=== PATIENT | female | born 1960 | race Caucasian/White ===

== ENCOUNTER 2017-02-09 20:36 | Emergency (ER) | payer OTHER ==
[~2017-02-09] VITALS: Ht 152.4 cm; Wt 67.5 kg
[~2017-02-09 20:36] MED LIST: CIPR500T4 PO; IBUP-727 PO; PHEN-538 PO
[2017-02-09 20:43] VITALS: Ht 152.4 cm; Wt 67.5 kg
--- NOTE | 2017-02-09 23:44 | ERD ---
ER Documentation Chief Complaint Date/Time DATE: 02/09/17 TIME: 23:42 Chief Complaint Fever, cough, colds and ST x2 days, and Flank pain HPI 56-year-old female presents with chief complaint of sore throat and cough x months. Associated symptoms include rhinorrhea and fever.. She denies neck stiffness, ear pain, drooling, difficulty swallowing, shortness of breath. She has taken Advil without relief. She denies recent travel or sick contacts. Currently rates her pain a 6 out of 10 in severity. She also complains of bilateral shoulder and neck pain, aggravated by carrying heavy purses or bags. She denies recent injury. Denies numbness and tingling. ROS All systems reviewed and are negative except as per history of present illness. Medications Home Meds Active Scripts Diclofenac Sodium* (Voltaren* Gel) 1% -100 Gm Gel, 2 GM TOP TID, #1 TUB Prov:Lindy Delarosa PA-C 02/10/17 Fluticasone Propionate (Flonase Allergy Relief) 9.9 Ml [place].susp, 2 SPRAY NASAL DAILY, #1 BOTTLE TO EACH NOSTRIL Prov:Lindy Delarosa PA-C 02/10/17 Cetirizine Hcl* (Zyrtec*) 10 Mg Capsule, 10 MG PO DAILY, #20 TAB.CHEW Prov:Lindy Delarosa PA-C 02/10/17 Phenazopyridine Hcl* (Pyridium*) 200 Mg Tab, 200 MG PO TID Y for DYSURIA, #6 TAB Prov:CAMILO JOLLY DO 03/18/16 Ciprofloxacin Hcl* (Ciprofloxacin Hcl*) 500 Mg Tablet, 500 MG PO BID for 5 Days , TAB Prov:CAMILO JOLLY DO 03/18/16 Reported Medications Ibuprofen (Motrin) 600 Mg Tablet, PO Q6 PRN 06/06/11 Allergies Allergies: Coded Allergies: No Known Drug Allergies (Verified Allergy, 05/29/12) PMhx/Soc History of Surgery: Yes (APPENDECTOMY) Anesthesia Reaction: No Hx Neurological Disorder: No Hx Respiratory Disorders: No Hx Cardiac Disorders: No Hx Psychiatric Problems: No Hx Miscellaneous Medical Probl: Yes (FIBROIDS, HPV) Hx Alcohol Use: No Hx Substance Use: No Hx Tobacco Use: No Smoking Status: Never smoker Physical Exam Vitals Vital Signs Date Time Temp Pulse Resp B/P Pulse Ox O2 Delivery O2 Flow Rate FiO2 02/10/17 00:46 97.7 66 16 136/78 99 Room Air 02/09/17 20:43 97.9 86 18 129/74 100 Physical Exam GENERAL: Non-toxic. No apparent signs of distress. HEENT: Atraumatic. Bilateral eyes are PERRL EOM intact. Normal conjunctiva, no injection. No eyelid or lower eyelid swelling noted. Ears: Normal tympanic membrane, no erythema or bulging. No ear canal swelling. No ear discharge. Nose : no nasal discharge. Throat: Oropharynx normal. Tongue pink and moist. Tonsillar erythema with no edema or exudate. No lymphadenopathy. LUNGS: Clear to auscultation. No accessory muscle use. No wheezing, no crackles. No signs or symptoms of respiratory distress. HEART: Regular rate and rhythm. No murmurs, clicks, rubs or gallops. BACK: Tenderness to palpation of bilateral shoulders. No crepitus, ecchymosis, or erythema. No midline tenderness, no costovertebral tenderness. EXTREMITIES: No peripheral cyanosis or edema. No focal pain or notable trauma. Full range of motion. Good capillary refill. NEURO: The patient moves all 4 extremities with 5/5 strength. Cranial nerves are grossly intact. Normal mental status for age. Good muscle tone. SKIN: There is no apparent rash, petechiae, erythema or swelling. Good skin turgor. Procedures/MDM Patients multiple complaints are likely to be due to viral etiology. On examination there was no tonsillar edema or exudate, TMs were pink/pearly and non-bulging, lungs were CTAB w/o rhonchi or rales, and patient has no meningismus. Appears to be in NAD, vitals are stable. Therefore, I do not believe that any imaging or blood work is warranted. I have explained to the patient that antibiotics are not effective against viral infections, and can further contribute to antibiotic resistance. Patient advised to practice good hand hygiene to prevent spread of viruses. Patient advised to stay hydrated and use the following medications for symptomatic relief: - Tylenol to relieve TRAVIS/fever/body aches. Patient advised to NOT exceed maximum daily dose of 3,000 mg. OR Motrin 600mg (do NOT exceed 3200 mg per day ) - Flonase and Zyrtec for chronic intermittent cough and nasal congestion that may be secondary to post nasal drip and allergies - warm salt water gargles for ST I have a low suspicion for PE, pneumonia, TB, strep pharyngitis, peritonsillar abscess, epiglottitis, OM, meningitis, and sepsis. Patient complaint of shoulder pain x months, worse with carrying heavy bags is likely due to muscle strain. I suggested rest of the area, avoid movements that trigger pain and carrying heavy loads. I prescribed Voltaren gel and suggested she continue with use of NSAIDs for pain relief. I have low suspicion for fracture, cord compression, and meningitis. Patient is stable for discharge for and outpatient management at this time. Advised to follow-up with PCP within 1-2 days. Patient is afebrile at time of discharge. Departure Diagnosis: Primary Impression: Upper respiratory infection URI type: unspecified URI Qualified Code: J06.9 - Upper respiratory tract infection, unspecified type Additional Impression: Cervical muscle strain Encounter type: initial encounter Qualified Code: S16.1XXA - Cervical muscle strain, initial encounter Condition: Good Lindy Delarosa PA-C Feb 09, 2017 23:44
--- NOTE | 2017-02-10 00:15 | RADRPT ---
PROCEDURE: CHEST - 1 VIEW CLINICAL INDICATION: 56-year-old female with cough. TECHNIQUE: A single frontal AP semi-erect view of the chest was performed upright. The images wer e reviewed on a PACS workstation. COMPARISON: None. FINDINGS: The cardiomediastinal silhouette has a normal appearance. There is mild elevation right hemidiaphrag m. There is no evidence for an infiltrate. There is no evidence for congestive heart failure. There is no evidence for pneumothorax. The osseous structures are intact. IMPRESSION: No evidence for active cardiopulmonary disease. .Jovan Oropeza MD, MD Date Time Electronically viewed and signed by .Jovan Oropeza MD, MD on 02/10/2017 00:14 .M/
[2017-02-10] MEDS ORDERED: FLUT9.9S NASAL (00:31)
[2017-02-10] MEDS ORDERED: CETI10CA PO (00:31)
[2017-02-10 00:46] VITALS: BP 136/78; PULSE 66; RESP 16; TEMP 97.7
[2017-02-10] MEDS ORDERED: DICL100G37 TOP (00:46)
== END 2017-02-10 00:48 | disposition home or self-care (01) ==
LOC: FTE 20:36
DX: J06.9 Acute upper respiratory infection, unspecified (principal); S16.1XXA Strain of muscle, fascia and tendon at neck level, initial encounter; X50.9XXA Other and unspecified overexertion or strenuous movements or postures, initial encounter; Y92.9 Unspecified place or not applicable
CPT/HCPCS: 71010

== ENCOUNTER 2018-01-22 19:45 | Emergency (ER) | END 2018-01-23 02:17 | disposition home or self-care (01) ==